=== PATIENT | male | born 1980 | race Caucasian/White ===

== ENCOUNTER 2017-08-27 19:28 | Emergency (ER) | payer BC ==
[2017-08-27] MEDS ORDERED: NS 0.9% 1000 ML* 2,000 ML IV ONE (20:00)
[2017-08-27] MEDS ORDERED: Pantoprazole IV* 40 MG IV ONE (20:05)
[2017-08-27] MEDS ORDERED: Octreotide Acetate* 50 MCG in NS 0.9% 50 ML* 50 ML IVPB ONE (20:09)
[2017-08-27 20:22] LABS: ABS Basophils 0.1 10^3/ul (0-0.2); ABS Eosinophils 0.1 10^3/ul (0-0.6); ABS Lymphocytes 2.9 10^3/ul (1.0-4.8); ABS Monocytes 0.7 10^3/ul (0-0.8); ABS Neutrophils 8.5 10^3/ul (1.5-7.7); ABS Nucleated RBC 0 10^3/ul; Eosinophil % 1.2 % (0-6); Hematocrit 48 % (42-52); Hemoglobin 16.4 g/dl (14.0-18.0); Lymphocyte % 23.7 % (25-47); Mean Corpuscular HGB Conc 34 g/dl (31-36); Mean Corpuscular Hemoglobin 29 pg (27-31); Mean Corpuscular Volume 85 fL (80-94); Mean Platelet Volume 8 um3 (7.4-10.4); Nucleated Red Blood Cells % 0.1; Platelet Count 205 10^3/ul (150-450); Red Blood Count 5.63 10^6/ul (4.0-5.4); Red Cell Distribution Width 13 % (10.5-15); White Blood Count 12.4 10^3/ul (3.5-10.8)
[2017-08-27 20:35] LABS: EGFR Non-African American 83.1 (>60); INR 0.92 (0.77-1.02)
[2017-08-27] MEDS ORDERED: Pantoprazole IV* 80 MG in NS 0.9% 250 ML* 250 ML IVPB SCH (21:00)
[2017-08-27] MEDS ORDERED: Octreotide Acetate* 500 MCG in NS 0.9% 100 ML* 100 ML IVPB SCH (21:00)
[2017-08-27] MEDS ORDERED: Morphine INJ* 4 MG/ML 1 ML CARPUJECT IV ONE (21:33)
[2017-08-27] MEDS ORDERED: Ondansetron INJ* 2 MG/ML VIAL IV ONE (21:33)
--- NOTE | 2017-08-27 21:35 | RAD ---
Indication: Upper GI bleeding. Single frontal view of the chest performed at 2107 hours was reviewed. No prior study is available for comparison. No mediastinal shift is noted. Heart is of normal size and configuration. Lung anderson appear clear. IMPRESSION: NO ACTIVE CARDIOPULMONARY DISEASE IS NOTED.
--- NOTE | 2017-08-27 21:36 | ED ---
Becca Wolfe Nilda, scribed for Amol Anand MD on 08/27/17 at 2006 . GI/ HPI - HPI Summary HPI Summary: This patient is a 37 year old M presenting to [facility] accompanied by family with a chief complaint of acute, constant hematemesis (4x [employer]) since 1830 today. Patient states he swallowed a piece of steak, drank water, and felt a pop. He notes he has a Hx of swallowing issues. The patient rates the pain 8/10 in severity. Symptoms aggravated and alleviated by nothing. Patient reports burning abd pain. He denies blood thinners. - History of Current Complaint Chief Complaint: EDGIBleed Time Seen by Provider: 08/27/17 19:59 Stated Complaint: VOMITING BLOOD Hx Obtained From: Patient Onset/Duration: Started Hours Ago, Still Present Timing: Constant Current Severity: Severe Pain Intensity: 8 Location of Pain: Diffuse Pain Characteristics: Burning Associated Signs and Symptoms: Positive: Hematemesis, Other: - abd pain Aggravating Factor(s): Nothing Alleviating Factor(s): Nothing - Allergy/Home Medications Allergies/Adverse Reactions: Allergies Allergy/AdvReac Type Severity Reaction Status Date / Time No Known Allergies Allergy Verified 04/25/16 08:39 PMH/Surg Hx/FS Hx/Imm Hx Endocrine/Hematology History: Denies: Hx Diabetes Cardiovascular History: Denies: Hx Angina, Hx Hypercholesterolemia, Hx Hypertension Respiratory History: Denies: Hx Asthma GI History: Reports: Hx Gastroesophageal Reflux Disease Neurological History: Denies: Hx Headaches, Hx Migraine Psychiatric History: Denies: Hx Anxiety Infectious Disease History: No Infectious Disease History: Denies: Traveled Outside the [place] in Last 30 Days - Family History Known Family History: Positive: Other - negative GI - Social History Alcohol Use: Occasionally Substance Use Type: Reports: None Smoking Status (MU): Never Smoked Tobacco Review of Systems Negative: Shortness Of Breath Positive: Abdominal Pain - burning, Other - hematemesis All Other Systems Reviewed And Are Negative: Yes Physical Exam - Summary Physical Exam Summary: General: well-appearing, no pain distress Skin: warm, color reflects adequate perfusion, dry Head: normal Eyes: EOMI, TIN ENT: normal, no blood in mouth Neck: supple, nontender Respiratory: CTA, breath sounds present Cardiovascular: Tachycardic Abdomen: soft, mild tenderness to palpation in epigastric area Bowel sounds: hypoactive Musculoskeletal: normal, strength/ROM intact Neurological: normal, sensory/motor intact, A&O x3 Psychological: anxious Triage Information Reviewed: Yes Vital Signs On Initial Exam: Initial Vitals Temp Pulse Resp BP Pulse Ox 98.5 F 117 20 179/121 99 08/27/17 19:47 08/27/17 19:47 08/27/17 19:47 08/27/17 19:47 08/27/17 19:47 Vital Signs Reviewed: Yes Diagnostics - Vital Signs Vital Signs Temp Pulse Resp BP Pulse Ox 08/27/17 19:47 98.5 F 117 20 179/121 99 - Laboratory Lab Results: Lab Results 08/27/17 08/27/17 08/27/17 Range/Units 20:00 20:00 20:00 WBC 12.4 H (3.5-10.8) 10^3/ul RBC 5.63 H (4.0-5.4) 10^6/ul Hgb 16.4 (14.0-18.0) g/dl Hct 48 (42-52) % MCV 85 (80-94) fL MCH 29 (27-31) pg MCHC 34 (31-36) g/dl RDW 13 (10.5-15) % Plt Count 205 (150-450) 10^3/ul MPV 8 (7.4-10.4) um3 Neut % (Auto) 68.8 (38-83) % Lymph % (Auto) 23.7 L (25-47) % [place] % (Auto) 5.6 (1-9) % Eos % (Auto) 1.2 (0-6) % Baso % (Auto) 0.7 (0-2) % Absolute Neuts (auto) 8.5 H (1.5-7.7) 10^3/ul Absolute Lymphs (auto) 2.9 (1.0-4.8) 10^3/ul Absolute Monos (auto) 0.7 (0-0.8) 10^3/ul Absolute Eos (auto) 0.1 (0-0.6) 10^3/ul Absolute Basos (auto) 0.1 (0-0.2) 10^3/ul Absolute Nucleated RBC 0 10^3/ul Nucleated RBC % 0.1 INR (Anticoag Therapy) 0.92 (0.77-1.02) APTT 31.1 (26.0-36.3) seconds Sodium (133-145) mmol/L Potassium (3.5-5.0) mmol/L Chloride (101-111) mmol/L Carbon Dioxide (22-32) mmol/L Anion Gap (2-11) mmol/L BUN (6-24) mg/dL Creatinine (0.67-1.17) mg/dL Est GFR ( Amer) (>60) Est GFR (Non-Af Amer) (>60) BUN/Creatinine Ratio (8-20) Glucose (70-100) mg/dL Lactic Acid (0.5-2.0) mmol/L Calcium (8.6-10.3) mg/dL Magnesium (1.9-2.7) mg/dL Total Bilirubin (0.2-1.0) mg/dL AST (13-39) U/L ALT (7-52) U/L Alkaline Phosphatase (34-104) U/L Troponin I (<0.04) ng/mL Total Protein (6.4-8.9) g/dL Albumin (3.2-5.2) g/dL Globulin (2-4) g/dL Albumin/Globulin Ratio (1-3) Lipase (11.0-82.0) U/L Blood Type O Negative Antibody Screen Negative Crossmatch See Detail 08/27/17 08/27/17 Range/Units 20:00 20:00 WBC (3.5-10.8) 10^3/ul RBC (4.0-5.4) 10^6/ul Hgb (14.0-18.0) g/dl Hct (42-52) % MCV (80-94) fL MCH (27-31) pg MCHC (31-36) g/dl RDW (10.5-15) % Plt Count (150-450) 10^3/ul MPV (7.4-10.4) um3 Neut % (Auto) (38-83) % Lymph % (Auto) (25-47) % [place] % (Auto) (1-9) % Eos % (Auto) (0-6) % Baso % (Auto) (0-2) % Absolute Neuts (auto) (1.5-7.7) 10^3/ul Absolute Lymphs (auto) (1.0-4.8) 10^3/ul Absolute Monos (auto) (0-0.8) 10^3/ul Absolute Eos (auto) (0-0.6) 10^3/ul Absolute Basos (auto) (0-0.2) 10^3/ul Absolute Nucleated RBC 10^3/ul Nucleated RBC % INR (Anticoag Therapy) (0.77-1.02) APTT (26.0-36.3) seconds Sodium 138 (133-145) mmol/L Potassium 3.7 (3.5-5.0) mmol/L Chloride 103 (101-111) mmol/L Carbon Dioxide 26 (22-32) mmol/L Anion Gap 9 (2-11) mmol/L BUN 13 (6-24) mg/dL Creatinine 1.02 (0.67-1.17) mg/dL Est GFR ( Amer) 106.9 (>60) Est GFR (Non-Af Amer) 83.1 (>60) BUN/Creatinine Ratio 12.7 (8-20) Glucose 111 H (70-100) mg/dL Lactic Acid 1.4 (0.5-2.0) mmol/L Calcium 9.6 (8.6-10.3) mg/dL Magnesium 2.0 (1.9-2.7) mg/dL Total Bilirubin 0.50 (0.2-1.0) mg/dL AST 21 (13-39) U/L ALT 27 (7-52) U/L Alkaline Phosphatase 58 (34-104) U/L Troponin I 0.00 (<0.04) ng/mL Total Protein 7.5 (6.4-8.9) g/dL Albumin 4.7 (3.2-5.2) g/dL Globulin 2.8 (2-4) g/dL Albumin/Globulin Ratio 1.7 (1-3) Lipase 23 (11.0-82.0) U/L Blood Type Antibody Screen Crossmatch Result Diagrams: 08/27/17 20:00 08/27/17 20:00 Lab Statement: Any lab studies that have been ordered have been reviewed, and results considered in the medical decision making process. - Radiology CXR Radiology Interpretation Completed By: Radiologist - pending CXR - EKG 2056 Cardiac Rate: NL EKG Rhythm: Sinus Rhythm - [address] Segment: Normal Ectopy: None GIGU Course/Dx - Course Assessment/Plan: An EKG reveals NSR 99 bpm, nl ST, no ectopy. Pending CXR. BP noted and advised to follow up with PCP. Medications reviewed. [2104] Dr. Masters ([facility]) accepts patient for transfer. TRANSFER TO [facility] [place] FOR UPPER GI BLEED[place] [facility] [place] WITH 2 UNITS PRBCS IN AMBULANCE. - Diagnoses Provider Diagnoses: Upper GI bleed - Physician Notifications Discussed Care Of Patient With: Dr. Masters - [facility] Time Discussed With Above Provider: 21:05 Instructed by Provider To: Transfer - accepts pt for transfer - Critical Care Time Critical Care Time: 75-104 min Discharge - Discharge Plan Condition: Stable Disposition: TRANS HIGHER LVL OF CARE FAC Referrals: Chris Garcia MD [Primary Care Provider] - The documentation as recorded by the Becca landin Nilda accurately reflects the service I personally performed and the decisions made by me, Amol Anand MD.
[2017-08-27] MEDS ORDERED: Morphine INJ* 4 MG/ML 1 ML SYRINGE (NEW SYRINGE VERSION) ONE (21:42)
[2017-08-27 22:07] VITALS: BP 162/104
== END 2017-08-27 22:05 | disposition short-term general hospital (02) ==
LOC: ED 19:28
DX: K92.2 Gastrointestinal hemorrhage, unspecified (principal); K21.9 Gastro-esophageal reflux disease without esophagitis
CPT/HCPCS: 36415; 71045; 80053; 83605; 83690; 83735; 84484; 85025; 85610; 85730; 86850; 86900; 86901; 86922; 93005; 99284; J2270; J2354; J2405